=== PATIENT | female | born 1955 | race Caucasian/White ===

== ENCOUNTER 2017-06-09 12:58 | Outpatient (CLI) | payer MEDICARE, MEDICAID ==
[~2017-06-09 12:58] MED LIST: ARIP20TA4 PO; BENZ1TAB7 PO; BUSP10TA10 PO; MIN5C PO; OXYC-511 PO; PROM25TA14 PO; ROFL500T7 PO; SERT50TA PO; SPIIN INH; VAL5T PO
[2017-06-09 13:20] LABS: ABG BASE EXCESS 3.4 mmol/L (-2.0-3.0); ABG HCO3 28.5 mmol/L (22.0-26.0); ABG OXYGEN SATURATION 91.8 % (95-98); ABG PCO2 (T) 44.8 mmHg (32.0-45.0); ABG PH (T) 7.421 (7.350-7.450); ABG PO2 (T) 56.9 mmHg (83-108); ALLEN'S TEST Positive; FCOHb 6.5 % (0.5-1.5); FMetHb 0.3 % (0.3-1.12); FO2Hb 85.6 % (94-100); TOTAL HEMOGLOBIN 14.5 G/dl (12.0-16.0)
== END 2017-06-09 23:59 | disposition home or self-care (01) ==
LOC: RT 12:58
PROVIDERS: ATTEND Physician Assistant
DX: J44.9 Chronic obstructive pulmonary disease, unspecified (principal)
CPT/HCPCS: 36600; 82803; 85018

== ENCOUNTER 2018-01-02 09:13 | Emergency (ER) | payer MEDICARE, MEDICAID ==
[~2018-01-02] VITALS: Ht 162.6 cm; Wt 48.1 kg
[2018-01-02] MEDS ORDERED: haloperidol lactate 5mg/ml inj IM ONE (09:15)
[2018-01-02] MEDS ORDERED: LORazepam 2 mg/ml vial IV ONE (09:15)
[2018-01-02] MEDS ORDERED: normal saline 1000ML IV soln IVB ONE (09:15)
[2018-01-02 09:35] LABS: BASOPHILS % (AUTO) 0.1 % (0-1); EOSINOPHILS # (AUTO) 0.1 X10'3 (0-0.9); HEMATOCRIT 40.6 % (35.0-45.0); HEMOGLOBIN 13.5 g/dl (12.0-16.0); LYMPHOCYTES # (AUTO) 0.9 X10'3 (1.1-4.8); LYMPHOCYTES % (AUTO) 11.6 % (21-51); MEAN CORPUSCULAR HEMOGLOBIN 31.1 PG (27.0-31.0); MEAN CORPUSCULAR HGB CONC 33.1 % (33.0-36.5); MEAN CORPUSCULAR VOLUME 93.8 FL (78-98); MEAN PLATELET VOLUME 9.3 FL (7.4-10.4); MONOCYTES # (AUTO) 0.2 X10'3 (0-0.9); MONOCYTES % (AUTO) 2.9 % (2-12); NEUTROPHILS # (AUTO) 6.9 X10'3 (1.8-7.7); NEUTROPHILS % (AUTO) 84.4 % (42-75); PLATELET COUNT 224 X10'3 (140-440); RED BLOOD COUNT 4.33 X10'6 (4.20-5.60); RED CELL DISTRIBUTION WIDTH 13.9 % (11.5-14.5); WHITE BLOOD COUNT 8.1 X10'3 (4.5-11.0)
[2018-01-02 09:49] LABS: ALANINE AMINOTRANSFERASE 32 U/L (12-78); ALBUMIN 3.8 G/DL (3.4-5.0); ALKALINE PHOSPHATASE 63 IU/L (46-116); ANION GAP 5 (8-16); ASPARTATE AMINO TRANSFERASE 30 U/L (10-37); BILIRUBIN,TOTAL 0.4 MG/DL (0.1-1.0); BLOOD UREA NITROGEN 16 MG/DL (7-18); BUN/CREATININE RATIO 22.2 (6.6-38.0); CALCIUM 9.1 MG/DL (8.5-10.1); CHLORIDE 103 MMOL/L (99-107); CREATININE 0.72 MG/DL (0.40-0.90); GLUCOSE 144 MG/DL (70-104); LIPASE 184 U/L (73-393); POTASSIUM 4.3 MMOL/L (3.5-5.1); SODIUM 141 MMOL/L (135-145); TOTAL PROTEIN 7.6 G/DL (6.4-8.2); eGFR 82 ML/MIN
[2018-01-02] MEDS ORDERED: LORA0.5T PO (09:55)
[2018-01-02] MEDS ORDERED: proCHLORperazine 10 MG/2 ml inj IV ONE (10:00)
[2018-01-02] MEDS ORDERED: diphenhydrAMINE 50 mg/ml inj IV ONE (10:00)
[2018-01-02 10:10] VITALS: BP 142/76
== END 2018-01-02 11:17 | disposition home or self-care (01) ==
LOC: ER 09:14
DX: F12.188 Cannabis abuse with other cannabis-induced disorder (principal); R11.2 Nausea with vomiting, unspecified; E86.0 Dehydration; I10 Essential (primary) hypertension; F44.9 Dissociative and conversion disorder, unspecified; G89.29 Other chronic pain; Z90.49 Acquired absence of other specified parts of digestive tract; Z90.710 Acquired absence of both cervix and uterus; Z98.890 Other specified postprocedural states; Z79.899 Other long term (current) drug therapy
CPT/HCPCS: 36415; 80053; 83690; 85025; 96361; 96372; 96374; 96375; 99284; J0780; J1200; J1630; J2060

== ENCOUNTER 2018-07-10 07:22 | Emergency (ER) | payer MEDICARE, MEDICAID ==
[~2018-07-10] VITALS: Ht 162.6 cm; Wt 48.0 kg
[2018-07-10] MEDS ORDERED: diphenhydrAMINE 50 mg/ml inj IV ONE (07:45)
[2018-07-10] MEDS ORDERED: LORazepam 2 mg/ml vial IV ONE (07:45)
[2018-07-10] MEDS ORDERED: ondansetron/PF 4mg/2ml inj IV ONE (07:45)
[2018-07-10] MEDS ORDERED: metoclopramide 5 mg/ml inj IM ONE (07:45)
[2018-07-10] MEDS ORDERED: normal saline 1000ML IV soln IVB ONE (07:45)
[2018-07-10 08:06] LABS: BASOPHILS # (AUTO) 0.1 X10'3 (0-0.2); BASOPHILS % (AUTO) 0.5 % (0-1); EOSINOPHILS # (AUTO) 0.1 X10'3 (0-0.9); EOSINOPHILS % (AUTO) 0.7 % (0-6); HEMATOCRIT 39.3 % (35.0-45.0); HEMOGLOBIN 13.5 g/dl (12.0-16.0); LYMPHOCYTES # (AUTO) 1.3 X10'3 (1.1-4.8); LYMPHOCYTES % (AUTO) 13.1 % (21-51); MEAN CORPUSCULAR HEMOGLOBIN 32.3 PG (27.0-31.0); MEAN CORPUSCULAR HGB CONC 34.3 g/dL (33.0-36.5); MEAN CORPUSCULAR VOLUME 94.1 FL (78-98); MEAN PLATELET VOLUME 8.6 FL (7.4-10.4); MONOCYTES # (AUTO) 0.3 X10'3 (0-0.9); MONOCYTES % (AUTO) 3.6 % (2-12); NEUTROPHILS # (AUTO) 7.9 X10'3 (1.8-7.7); NEUTROPHILS % (AUTO) 82.1 % (42-75); PLATELET COUNT 236 X10'3 (140-440); RED BLOOD COUNT 4.17 X10'6 (4.20-5.60); RED CELL DISTRIBUTION WIDTH 13.5 % (11.5-14.5); WHITE BLOOD COUNT 9.6 X10'3 (4.5-11.0)
[2018-07-10 08:27] LABS: ALANINE AMINOTRANSFERASE 34 U/L (12-78); ALBUMIN 3.8 G/DL (3.4-5.0); ALBUMIN/GLOBULIN RATIO 1.1 (1.1-1.5); ALKALINE PHOSPHATASE 65 IU/L (46-116); ANION GAP 6 (8-16); ASPARTATE AMINO TRANSFERASE 31 U/L (10-37); BILIRUBIN,TOTAL 0.5 MG/DL (0.1-1.0); BLOOD UREA NITROGEN 11 MG/DL (7-18); BUN/CREATININE RATIO 14.5 (6.6-38.0); CALCIUM 9.8 MG/DL (8.5-10.1); CHLORIDE 102 MMOL/L (99-107); CREATININE 0.76 MG/DL (0.40-0.90); GLUCOSE 147 MG/DL (70-104); LIPASE 133 U/L (73-393); POTASSIUM 4.1 MMOL/L (3.5-5.1); SODIUM 140 MMOL/L (135-145); TOTAL CARBON DIOXIDE 31.8 MMOL/L (24-32); TOTAL PROTEIN 7.2 G/DL (6.4-8.2); eGFR 77 ML/MIN
[2018-07-10] MEDS ORDERED: ONDA8TAB6 PO (08:39)
[2018-07-10 08:56] VITALS: BP 149/78
== END 2018-07-10 08:50 | disposition home or self-care (01) ==
LOC: ER 07:22
DX: F12.20 Cannabis dependence, uncomplicated (principal); I10 Essential (primary) hypertension; J44.9 Chronic obstructive pulmonary disease, unspecified; G89.29 Other chronic pain; M81.0 Age-related osteoporosis without current pathological fracture; Z90.710 Acquired absence of both cervix and uterus; Z56.0 Unemployment, unspecified
CPT/HCPCS: 36415; 80053; 83690; 85025; 93005; 96361; 96372; 96374; 96375; 99284; J1200; J2060; J2405; J2765; J7030

== ENCOUNTER 2019-09-09 11:33 | Emergency (ER) | payer MEDICARE, MEDICAID ==
[~2019-09-09] VITALS: Ht 162.6 cm; Wt 45.5 kg
[~2019-09-09 11:33] MED LIST changes: +ONDA8TAB6 PO
[2019-09-09] MEDS ORDERED: ketamine 50 mg/ml 10ml vial IV ONE (12:10)
--- NOTE | 2019-09-09 12:55 | NUR ---
MD at bedside aware of hypertension after recieving Ketamine during procedure.
[2019-09-09] MEDS ORDERED: diphenhydrAMINE 50 mg/ml inj IV ONE (13:15)
[2019-09-09] MEDS ORDERED: metoclopramide 5 mg/ml inj IV ONE (13:15)
[2019-09-09 14:23] VITALS: BP 135/83
== END 2019-09-09 14:27 | disposition home or self-care (01) ==
LOC: ER 11:33
DX: S52.502A Unspecified fracture of the lower end of left radius, initial encounter for closed fracture (principal); I10 Essential (primary) hypertension; J44.9 Chronic obstructive pulmonary disease, unspecified; M81.0 Age-related osteoporosis without current pathological fracture; F32.9 Major depressive disorder, single episode, unspecified; F12.90 Cannabis use, unspecified, uncomplicated; Z86.19 Personal history of other infectious and parasitic diseases; Z90.49 Acquired absence of other specified parts of digestive tract; Z90.710 Acquired absence of both cervix and uterus; Z98.890 Other specified postprocedural states; Z56.0 Unemployment, unspecified; Z79.899 Other long term (current) drug therapy; W01.0XXA Fall on same level from slipping, tripping and stumbling without subsequent striking against object, initial encounter; Y93.89 Activity, other specified; Y92.89 Other specified places as the place of occurrence of the external cause; Y99.8 Other external cause status
CPT/HCPCS: 25605; 73090; 73100; 96374; 96375; 99152; 99285; J1200; J2765; 94760; 99153

== ENCOUNTER 2019-10-28 03:31 | Inpatient (IN) | payer MEDICARE, MEDICAID ==
[~2019-10-28] VITALS: Ht 162.6 cm; Wt 45.5 kg
[~2019-10-28 03:31] MED LIST changes: +ALBU18HF2 INH; -ARIP20TA4 PO; +ARIP5TAB14 PO; +ASPI-1071 PO; +ATOR20TA66 PO; -BENZ1TAB7 PO; -BUSP10TA10 PO; +COR3.125T PO; +DOXY100C2 PO; -MIN5C PO; +OMEP40CA13 PO; -ONDA8TAB6 PO; +OXYC-150 PO; -OXYC-511 PO; +PRED10TA23 PO; -PROM25TA14 PO; +SERT25TA PO; -SERT50TA PO; -SPIIN INH; +UMEC62.5 INH
[2019-10-28] MEDS ORDERED: methylPREDNISolone sod succ 125mg/2ml vial IV ONE (03:35)
[2019-10-28] MEDS ORDERED: ipratropium/albuterol 3ml nebule NEB ONE (03:35)
[2019-10-28] MEDS ORDERED: normal saline 1000ML IV soln IVB ONE (03:35)
[2019-10-28] MEDS ORDERED: magnesium 2GM in 50ml NS 50 ML IV ONE (03:35)
[2019-10-28 03:59] LABS: BASOPHILS # (AUTO) 0.2 X10'3 (0-0.2); BASOPHILS % (AUTO) 1.2 % (0-1); EOSINOPHILS # (AUTO) 0.1 X10'3 (0-0.9); EOSINOPHILS % (AUTO) 0.6 % (0-6); LYMPHOCYTES # (AUTO) 3.4 X10'3 (1.1-4.8); LYMPHOCYTES % (AUTO) 17.8 % (21-51); MEAN CORPUSCULAR HEMOGLOBIN 31.6 PG (27.0-31.0); MEAN CORPUSCULAR HGB CONC 32.5 g/dL (33.0-36.5); MEAN CORPUSCULAR VOLUME 97.1 FL (78-98); MEAN PLATELET VOLUME 8.5 FL (7.4-10.4); MONOCYTES # (AUTO) 1.7 X10'3 (0-0.9); MONOCYTES % (AUTO) 8.9 % (2-12); NEUTROPHILS # (AUTO) 13.5 X10'3 (1.8-7.7); NEUTROPHILS % (AUTO) 71.5 % (42-75); PLATELET COUNT 403 X10'3 (140-440); RED BLOOD COUNT 4.12 X10'6 (4.20-5.60); RED CELL DISTRIBUTION WIDTH 13.8 % (11.5-14.5); WHITE BLOOD COUNT 18.9 X10'3 (4.5-11.0)
[2019-10-28 04:14] LABS: ALANINE AMINOTRANSFERASE 38 U/L (12-78); ALBUMIN 3.6 G/DL (3.4-5.0); ALKALINE PHOSPHATASE 68 IU/L (46-116); ASPARTATE AMINO TRANSFERASE 36 U/L (10-37); BILIRUBIN,TOTAL 0.3 MG/DL (0.1-1.0); BLOOD UREA NITROGEN 17 MG/DL (7-18); BUN/CREATININE RATIO 24.6 (6.6-38.0); CALCIUM 8.5 MG/DL (8.5-10.1); CHLORIDE 96 MMOL/L (99-107); CREATININE 0.69 MG/DL (0.40-0.90); GLUCOSE 243 MG/DL (70-104); SODIUM 139 MMOL/L (135-145); TOTAL PROTEIN 7.2 G/DL (6.4-8.2); eGFR 86 ML/MIN
[2019-10-28 04:20] LABS: TROPONIN I < 0.04 NG/ML (0.0-0.05)
[2019-10-28] MEDS ORDERED: CefTRIAXone 2gm/D5W 50ml 50 ML IV ONE (04:20)
[2019-10-28 04:24] LABS: POTASSIUM 5.3 MMOL/L (3.5-5.1)
[2019-10-28 04:27] LABS: CLARITY,URINE CLEAR (Clear); COLOR,URINE YELLOW (Yellow); GLUCOSE, URINE 100 mg/dl (Neg); KETONES,URINE NEGATIVE (Neg); LEUKOCYTE ESTERASE ,URINE NEGATIVE (Neg); NITRITES, URINE NEGATIVE (Neg); OCCULT BLOOD,URINE SMALL (Neg); PROTEIN,URINE NEGATIVE (Neg); UROBILINOGEN,URINE 0.2 E.U/dL (0.2-1.0)
[2019-10-28 04:30] LABS: UA COLLECTION TYPE OTHER
[2019-10-28 04:32] LABS: ANION GAP -7 (8-16); TOTAL CARBON DIOXIDE 49.6 MMOL/L (24-32)
[2019-10-28 04:34] LABS: BACTERIA,URINE NONE SEEN /HPF (Neg); WBC,URINE 0-4 /HPF (0-4)
--- NOTE | 2019-10-28 04:34 | NUR ---
bridgett [phone] . Pt gave permission to speak medical updates with him
[2019-10-28 04:35] LABS: FINE GRANULAR CAST 0-3 /LPF (NEGATIVE); SQUAMOUS EPITHELIAL CELL,UR FEW /LPF (FEW)
[2019-10-28 05:21] LABS: ABG BASE EXCESS 17.3 mmol/L (-2.0-2.0); ABG HCO3 47.1 mmol/L (22.0-26.0); ABG OXYGEN SATURATION 91.2 % (94-97); ABG PCO2 (T) 86.1 mmHg (32.0-45.0); ABG PO2 (T) 55.1 mmHg (75.0-100.0); ALLEN'S TEST POSITIVE; FCOHb 2.6 % (0.0-3.9); FMetHb 0.1 % (0.0-1.5); FO2Hb 88.7 % (94-97); PATIENT TEMPERATURE 36.5; RESPIRATORY RATE 14 b/min; TOTAL HEMOGLOBIN 12.3 G/dl (12.0-16.0)
--- NOTE | 2019-10-28 06:22 | NUR ---
PATIENT ASLEP ON HIGH FOWLERS,ON BIPAP FI02 30%,RATE 20.
--- NOTE | 2019-10-28 07:04 | NUR ---
PATIENT ASSISTED TO BSC,RT TO RETURN IN 30 MINUTES TO PERFORM ABG,FAILED FIRSDT ATTEMPT.F102 CHANGED TO 50%.
--- NOTE | 2019-10-28 07:11 | NUR ---
PATIENT SATING 100% ON 50%FI02,ADJUSTED TO 30%,99% SATURATION.
[2019-10-28] MEDS: roflumilast 500mcg tablet PO SCH (08:00)
[2019-10-28] MEDS ORDERED: potassium CL 10mEq/100ml bag 100 ML IV PRN ×2 (08:05)
[2019-10-28] MEDS ORDERED: ondansetron/PF 4mg/2ml inj IV PRN (08:05)
[2019-10-28] MEDS ORDERED: mag hydrox/Alum hydrox/simeth 30ml oral suspension PO PRN (08:05)
[2019-10-28] MEDS ORDERED: magnesium 2GM in 50ml NS 50 ML IV PRN (08:05)
[2019-10-28] MEDS ORDERED: potassium Cl 20 mEq SR tablet PO PRN ×2 (08:05)
[2019-10-28] MEDS ORDERED: magnesium 4gm in 100ml NS 100 ML IV PRN (08:05)
[2019-10-28] MEDS ORDERED: magnesium hydroxide 30ml (MOM) UD suspension PO PRN (08:05)
[2019-10-28] MEDS ORDERED: acetaminophen 325mg tablet PO PRN ×2 (08:05)
[2019-10-28] MEDS: enoxaparin 40mg/0.4ml syringe SQ SCH (08:20)
--- NOTE | 2019-10-28 08:57 | NUR ---
Patient in room ED 5. I have received report from Shwetha CRAVEN and had the opportunity to ask questions and assume patient care. Awaiting patient's arrival to the unit.
[2019-10-28] MEDS ORDERED: ipratropium/albuterol 3ml nebule ONE (09:00)
[2019-10-28] MEDS: ipratropium/albuterol 3ml nebule NEB SCH ×4 (09:04→23:48)
[2019-10-28 09:05] LABS: ABG BASE EXCESS 9.9 mmol/L (-2.0-2.0); ABG HCO3 37.1 mmol/L (22.0-26.0); ABG OXYGEN SATURATION 97.8 % (94-97); ABG PCO2 (T) 61.8 mmHg (32.0-45.0); ABG PO2 (T) 102.8 mmHg (75.0-100.0); ALLEN'S TEST POSITIVE; FMetHb 0.1 % (0.0-1.5); FO2Hb 95.7 % (94-97); PATIENT TEMPERATURE 36.5; RESPIRATORY RATE 20 b/min; TIDAL VOLUME 593 mL; TOTAL HEMOGLOBIN 12.6 G/dl (12.0-16.0)
--- NOTE | 2019-10-28 09:15 | NUR ---
Patient arrived to the unit accompanied by ED personnel. Patient currently on 4L oxygen satting 94-95%, cannula placed by RT. Bipap in room, ABG results pending. 2 RN skin check complete, vital signs obtained, bedside monitoring initiated, patient belongings placed at the bedside, and patient oriented to room and call light. Patient voided in commode. Will continue to monitor.
[2019-10-28] MEDS: oxyCODONE/APAP 10/325mg tablet PO PRN (09:45)
[2019-10-28] MEDS: atorvastatin 20mg tablet PO SCH (10:36)
[2019-10-28] MEDS: aripiprazole 5mg tablet PO SCH (10:36)
[2019-10-28] MEDS: montelukast 10mg tablet PO SCH (10:36)
[2019-10-28] MEDS: sertraline 50mg tablet PO SCH (10:37)
[2019-10-28] MEDS: aspirin 81mg tablet.DR PO SCH (10:37)
[2019-10-28] MEDS: carVEDilol 3.125mg tablet PO SCH ×2 (10:37→20:39)
[2019-10-28] MEDS: diazepam 5mg tablet PO PRN ×2 (10:40→23:27)
[2019-10-28 11:00] VITALS: BP 106/63
[2019-10-28 15:00] VITALS: BP 110/58
[2019-10-28] MEDS: methylPREDNISolone sod succ 125mg/2ml vial IV SCH ×2 (16:27→23:28)
[2019-10-28] MEDS: piperacillin/tazo 4.5gm/100ml 100 ML IV SCH ×2 (16:38→23:26)
[2019-10-28 18:00] VITALS: BP 124/72
--- NOTE | 2019-10-28 18:10 | NUR ---
Problems reprioritized. Patient report given, questions answered & plan of care reviewed with Gloria CRAVEN.
--- NOTE | 2019-10-28 18:11 | NUR ---
Patient in room PCU 3027. I have received report from Dinorah CRAVEN and had the opportunity to ask questions and assume patient care.
[2019-10-28] MEDS: K and/or MAG REPLACEMENT MC SCH (20:00)
[2019-10-28] MEDS ORDERED: carVEDilol 3.125mg tablet PO SCH (20:00)
[2019-10-28] MEDS: lactobacillus rhamnosus 10,000 MMU CELLS/CAPSULE PO SCH (20:40)
[2019-10-28 22:00] VITALS: BP 136/89
[2019-10-29 02:00] VITALS: BP 139/71
[2019-10-29] MEDS: ipratropium/albuterol 3ml nebule NEB SCH ×7 (02:00→23:05)
[2019-10-29 05:40] LABS: BASOPHILS # (AUTO) 0.1 X10'3 (0-0.2); BASOPHILS % (AUTO) 0.6 % (0-1); EOSINOPHILS % (AUTO) 0 % (0-6); HEMATOCRIT 35.1 % (35.0-45.0); HEMOGLOBIN 11.7 g/dl (12.0-16.0); LYMPHOCYTES # (AUTO) 0.7 X10'3 (1.1-4.8); MEAN CORPUSCULAR HEMOGLOBIN 31.9 PG (27.0-31.0); MEAN CORPUSCULAR HGB CONC 33.2 g/dL (33.0-36.5); MEAN PLATELET VOLUME 8.3 FL (7.4-10.4); MONOCYTES # (AUTO) 0.3 X10'3 (0-0.9); MONOCYTES % (AUTO) 1.9 % (2-12); NEUTROPHILS # (AUTO) 12.6 X10'3 (1.8-7.7); NEUTROPHILS % (AUTO) 92.5 % (42-75); PLATELET COUNT 283 X10'3 (140-440); RED BLOOD COUNT 3.65 X10'6 (4.20-5.60); RED CELL DISTRIBUTION WIDTH 13.5 % (11.5-14.5); WHITE BLOOD COUNT 13.6 X10'3 (4.5-11.0)
[2019-10-29 06:00] VITALS: BP 132/66
[2019-10-29 06:12] LABS: ALANINE AMINOTRANSFERASE 29 U/L (12-78); ALBUMIN 3.2 G/DL (3.4-5.0); ALKALINE PHOSPHATASE 53 IU/L (46-116); ANION GAP 2 (8-16); ASPARTATE AMINO TRANSFERASE 20 U/L (10-37); BILIRUBIN,TOTAL 0.7 MG/DL (0.1-1.0); BLOOD UREA NITROGEN 16 MG/DL (7-18); BUN/CREATININE RATIO 23.5 (6.6-38.0); CALCIUM 8.9 MG/DL (8.5-10.1); CHLORIDE 97 MMOL/L (99-107); CREATININE 0.68 MG/DL (0.40-0.90); GLUCOSE 146 MG/DL (70-104); MAGNESIUM 1.9 MG/DL (1.5-2.4); POTASSIUM 4.4 MMOL/L (3.5-5.1); SODIUM 137 MMOL/L (135-145); TOTAL CARBON DIOXIDE 38.4 MMOL/L (24-32); TOTAL PROTEIN 6.3 G/DL (6.4-8.2); eGFR 87 ML/MIN
--- NOTE | 2019-10-29 06:42 | NUR ---
Patient in room PCU 3027. I have received report from Gloria CRAVEN and had the opportunity to ask questions and assume patient care.
--- NOTE | 2019-10-29 06:44 | NUR ---
Problems reprioritized. Patient report given, questions answered & plan of care reviewed with Delano CRAVEN.
[2019-10-29] MEDS ORDERED: atorvastatin 20mg tablet PO SCH (08:00)
[2019-10-29] MEDS ORDERED: roflumilast 500mcg tablet PO SCH (08:00)
[2019-10-29] MEDS ORDERED: sertraline 50mg tablet PO SCH (08:00)
[2019-10-29] MEDS ORDERED: aripiprazole 5mg tablet PO SCH (08:00)
[2019-10-29] MEDS: carVEDilol 3.125mg tablet PO SCH ×2 (08:00→20:04)
[2019-10-29] MEDS: K and/or MAG REPLACEMENT MC SCH ×2 (08:00→19:56)
[2019-10-29] MEDS ORDERED: aspirin 81mg tablet.DR PO SCH (08:00)
[2019-10-29] MEDS: methylPREDNISolone sod succ 125mg/2ml vial IV SCH ×2 (08:20→16:05)
[2019-10-29] MEDS: piperacillin/tazo 4.5gm/100ml 100 ML IV SCH ×2 (08:20→16:08)
[2019-10-29] MEDS: roflumilast 500mcg tablet PO SCH (08:21)
[2019-10-29] MEDS: enoxaparin 40mg/0.4ml syringe SQ SCH (08:21)
[2019-10-29] MEDS: aspirin 81mg tablet.DR PO SCH (08:22)
[2019-10-29] MEDS: aripiprazole 5mg tablet PO SCH (08:22)
[2019-10-29] MEDS: lactobacillus rhamnosus 10,000 MMU CELLS/CAPSULE PO SCH ×2 (08:22→20:04)
[2019-10-29] MEDS: pantoprazole 40mg Tablet.DR PO SCH (08:22)
[2019-10-29] MEDS: montelukast 10mg tablet PO SCH (08:22)
[2019-10-29] MEDS: oxyCODONE/APAP 10/325mg tablet PO PRN ×2 (08:29→16:37)
[2019-10-29] MEDS: atorvastatin 20mg tablet PO SCH (08:29)
[2019-10-29] MEDS: sertraline 50mg tablet PO SCH (08:29)
[2019-10-29 09:01] LABS: ABG BASE EXCESS 10.1 mmol/L (-2.0-2.0); ABG HCO3 36.3 mmol/L (22.0-26.0); ABG PCO2 (T) 55.9 mmHg (32.0-45.0); ABG PO2 (T) 67.9 mmHg (75.0-100.0); FCOHb 0.6 % (0.0-3.9); FLOW 2 L/min; FMetHb 0.1 % (0.0-1.5); FO2Hb 93.3 % (94-97); TOTAL HEMOGLOBIN 12.6 G/dl (12.0-16.0)
[2019-10-29 11:00] VITALS: BP 126/75
[2019-10-29] MEDS: diazepam 5mg tablet PO PRN (12:31)
--- NOTE | 2019-10-29 15:02 | NUR ---
Pt with a low BMI however current wt isn't scaled. Pt seen at bedside states she believes she currently weighs 100 lbs with UBW 115 lbs at the highest, however then reports her weight has been stable around 100-105 lbs over the last 8 months. Pt reports low PO intake [employer] d/t being too busy helping other people, then later reports she has a nephew that helps her with meals and that she usually will eat throughout the day. Pt currently endorsing a good appetite which is evident with average 50-75% PO intake, up to 100% PO intake at lunch today. Pt reports low PO intake at dinner last night is r/t not liking fish. Pt with no documented significant decrease in muscle strength or edema. Likely pt with a chronically low BMI. Pt denies food allergies and reports some difficulty chewing d/t missing some teeth. Pt agrees to gravy on meat TID and requests no fish, Vietnamese yogurt TID, and sub (chocolate) almond milk in place of regular milk. All food preferences were d/w dietary. Pt provided with ONS coupons and RD contact information. Will continue to follow. Addendum: 10/29/19 at [address] Amended: Links added.
[2019-10-29 18:00] VITALS: BP 120/65
--- NOTE | 2019-10-29 18:09 | NUR ---
Problems reprioritized. Patient report given, questions answered & plan of care reviewed with Ayanna CRAVEN.
[2019-10-29 22:00] VITALS: BP 118/64
[2019-10-30] MEDS: piperacillin/tazo 4.5gm/100ml 100 ML IV SCH ×2 (00:04→08:11)
[2019-10-30] MEDS: methylPREDNISolone sod succ 125mg/2ml vial IV SCH ×2 (00:04→08:10)
[2019-10-30 02:00] VITALS: BP 128/67
[2019-10-30] MEDS: ipratropium/albuterol 3ml nebule NEB SCH ×3 (02:49→11:02)
[2019-10-30 05:58] LABS: BASOPHILS % (AUTO) 0.1 % (0-1); EOSINOPHILS % (AUTO) 0 % (0-6); HEMATOCRIT 34.2 % (35.0-45.0); HEMOGLOBIN 11.5 g/dl (12.0-16.0); LYMPHOCYTES # (AUTO) 0.6 X10'3 (1.1-4.8); MEAN CORPUSCULAR HEMOGLOBIN 32.3 PG (27.0-31.0); MEAN CORPUSCULAR HGB CONC 33.5 g/dL (33.0-36.5); MEAN CORPUSCULAR VOLUME 96.3 FL (78-98); MEAN PLATELET VOLUME 8.2 FL (7.4-10.4); MONOCYTES # (AUTO) 0.4 X10'3 (0-0.9); MONOCYTES % (AUTO) 2.8 % (2-12); NEUTROPHILS # (AUTO) 13.8 X10'3 (1.8-7.7); NEUTROPHILS % (AUTO) 93.1 % (42-75); PLATELET COUNT 244 X10'3 (140-440); RED BLOOD COUNT 3.55 X10'6 (4.20-5.60); RED CELL DISTRIBUTION WIDTH 13.3 % (11.5-14.5); WHITE BLOOD COUNT 14.8 X10'3 (4.5-11.0)
--- NOTE | 2019-10-30 06:00 | NUR ---
Patient in room PCU 3027. I have received report from Anneliese CRAVEN and had the opportunity to ask questions and assume patient care.
[2019-10-30 06:17] LABS: ALANINE AMINOTRANSFERASE 27 U/L (12-78); ALKALINE PHOSPHATASE 46 IU/L (46-116); ANION GAP 3 (8-16); ASPARTATE AMINO TRANSFERASE 18 U/L (10-37); BILIRUBIN,TOTAL 0.6 MG/DL (0.1-1.0); BLOOD UREA NITROGEN 12 MG/DL (7-18); BUN/CREATININE RATIO 16.9 (6.6-38.0); CALCIUM 8.5 MG/DL (8.5-10.1); CHLORIDE 99 MMOL/L (99-107); CREATININE 0.71 MG/DL (0.40-0.90); GLUCOSE 132 MG/DL (70-104); MAGNESIUM 1.9 MG/DL (1.5-2.4); POTASSIUM 3.9 MMOL/L (3.5-5.1); SODIUM 139 MMOL/L (135-145); TOTAL CARBON DIOXIDE 36.7 MMOL/L (24-32); TOTAL PROTEIN 6.1 G/DL (6.4-8.2); eGFR 83 ML/MIN
--- NOTE | 2019-10-30 06:19 | NUR ---
Problems reprioritized. Patient report given, questions answered & plan of care reviewed with HERBER Dean.
[2019-10-30 07:00] VITALS: BP 148/81
[2019-10-30] MEDS: K and/or MAG REPLACEMENT MC SCH (08:00)
[2019-10-30] MEDS: oxyCODONE/APAP 10/325mg tablet PO PRN (08:09)
[2019-10-30] MEDS: carVEDilol 3.125mg tablet PO SCH (08:10)
[2019-10-30] MEDS: aripiprazole 5mg tablet PO SCH (08:10)
[2019-10-30] MEDS: pantoprazole 40mg Tablet.DR PO SCH (08:10)
[2019-10-30] MEDS: lactobacillus rhamnosus 10,000 MMU CELLS/CAPSULE PO SCH (08:10)
[2019-10-30] MEDS: roflumilast 500mcg tablet PO SCH (08:11)
[2019-10-30] MEDS: montelukast 10mg tablet PO SCH (08:12)
[2019-10-30] MEDS: sertraline 50mg tablet PO SCH (08:12)
[2019-10-30] MEDS: atorvastatin 20mg tablet PO SCH (08:12)
[2019-10-30] MEDS: aspirin 81mg tablet.DR PO SCH (08:12)
[2019-10-30] MEDS: enoxaparin 40mg/0.4ml syringe SQ SCH (08:13)
--- NOTE | 2019-10-30 08:45 | NUR ---
[address] [facility]. Dr. Bernard ordered STAT ABG for this patient THanks. [id number]
[2019-10-30 10:11] LABS: ABG BASE EXCESS 5.5 mmol/L (-2.0-2.0); ABG HCO3 30.5 mmol/L (22.0-26.0); ABG OXYGEN SATURATION 96.9 % (94-97); ABG PO2 (T) 81.5 mmHg (75.0-100.0); ALLEN'S TEST POSITIVE; FCOHb 1.1 % (0.0-3.9); FLOW 2 L/min; FMetHb 0.1 % (0.0-1.5); FO2Hb 95.7 % (94-97); TOTAL HEMOGLOBIN 13.4 G/dl (12.0-16.0)
--- NOTE | 2019-10-30 10:33 | NUR ---
ambulated 600 feet with no assistive devices. no complications
[2019-10-30] MEDS ORDERED: PRED20TA PO (10:52)
[2019-10-30] MEDS ORDERED: MONT10TA26 PO (10:52)
[2019-10-30] MEDS ORDERED: IPRA3AMP9 NEB (10:52)
[2019-10-30] MEDS ORDERED: AMOX-580 PO (10:52)
[2019-10-30 11:00] VITALS: BP 140/77
--- NOTE | 2019-10-30 12:55 | NUR ---
PAtient was d/c to home. Her sister picked her up in a private vehicle. PIV was removed with cannula intact. RX were e scripted to [facility] in [place]. D/c instructions were reviewed with patient and she verbalized understanding. PAtient was alert, oriented, and appropriate at time of d/c.
--- NOTE | 2019-10-30 13:51 | NUR ---
Patient called RX were sent to wrong pharmacy. RXs called in to [facility] in [place].
--- NOTE | 2019-10-31 16:06 | NUR ---
Case management DC follow up: LM/VM re post status follow up, questions, concerns
== END 2019-10-30 12:53 | disposition home health service (06) | DRG 189 ==
LOC: ER 03:31 → ED HOLD 08:05 → PCU 3S 09:27
PROVIDERS: ADMIT Family Medicine; ATTEND Family Medicine
PROC: 5A09357 Assistance with Respiratory Ventilation, Less than 24 Consecutive Hours, Continuous Positive Airway Pressure (ICD-10-PCS; principal; 2019-10-28)
PROC: 5A09357 Assistance with Respiratory Ventilation, Less than 24 Consecutive Hours, Continuous Positive Airway Pressure (ICD-10-PCS; 2019-10-29)
PROC: 5A09357 Assistance with Respiratory Ventilation, Less than 24 Consecutive Hours, Continuous Positive Airway Pressure (ICD-10-PCS; 2019-10-30)
DX: J96.21 Acute and chronic respiratory failure with hypoxia (principal); J69.0 Pneumonitis due to inhalation of food and vomit; I21.4 Non-ST elevation (NSTEMI) myocardial infarction; J44.1 Chronic obstructive pulmonary disease with (acute) exacerbation; J96.22 Acute and chronic respiratory failure with hypercapnia; F12.90 Cannabis use, unspecified, uncomplicated; G89.4 Chronic pain syndrome; I10 Essential (primary) hypertension; D72.823 Leukemoid reaction; B19.20 Unspecified viral hepatitis C without hepatic coma; E87.5 Hyperkalemia; F32.9 Major depressive disorder, single episode, unspecified; M81.0 Age-related osteoporosis without current pathological fracture; Z79.82 Long term (current) use of aspirin; Z90.49 Acquired absence of other specified parts of digestive tract; Z90.710 Acquired absence of both cervix and uterus; Z99.81 Dependence on supplemental oxygen; Z79.899 Other long term (current) drug therapy
CPT/HCPCS: 36415; 36600; 71045; 80053; 81001; 82803; 83605; 83735; 83880; 84484; 85018; 85025; 85610; 87040; 93005; 94640; 94660; 94760; 97116; 97162; 97530; 99291; G0378; J0696; J1650; J2543; J2930; J3475; J7030

== ENCOUNTER 2020-05-28 16:01 | Emergency (ER) | payer MEDICARE, MEDICAID ==
[~2020-05-28] VITALS: Ht 160 cm; Wt 49.1 kg
[~2020-05-28 16:01] MED LIST changes: -ALBU18HF2 INH; +ALBU90AE2 IH; +ALEN70TA37 PO; +AMLO5TAB16 PO; -ASPI-1071 PO; +ASPI-500 PO; +CARV3.122 PO; -COR3.125T PO; +DIAZ10TA5 PO; -DOXY100C2 PO; +GABA300C PO; +MONT10TA32 PO; -OXYC-150 PO; +OXYC1TAB17 PO; -PRED10TA23 PO; +PRED20TA PO; -VAL5T PO
[2020-05-28] MEDS ORDERED: ipratropium/albuterol 3ml nebule NEB ONE (16:05)
[2020-05-28] MEDS ORDERED: diazepam 5mg tablet PO ONE (16:05)
[2020-05-28] MEDS: predniSONE 20 mg tablet PO ONE ×2 (16:21→16:22)
[2020-05-28 17:20] VITALS: BP 123/75
== END 2020-05-28 17:30 | disposition home or self-care (01) ==
LOC: ER 16:01
DX: F41.9 Anxiety disorder, unspecified (principal); J44.9 Chronic obstructive pulmonary disease, unspecified; R06.02 Shortness of breath; I10 Essential (primary) hypertension; G89.29 Other chronic pain; F32.9 Major depressive disorder, single episode, unspecified; F12.90 Cannabis use, unspecified, uncomplicated; Z86.19 Personal history of other infectious and parasitic diseases; Z90.89 Acquired absence of other organs; Z90.710 Acquired absence of both cervix and uterus; Z98.890 Other specified postprocedural states; Z56.0 Unemployment, unspecified; Z79.82 Long term (current) use of aspirin; Z79.899 Other long term (current) drug therapy
CPT/HCPCS: 71045; 93005; 94640; 94760; 99284; J7512

== ENCOUNTER 2020-06-09 19:24 | Emergency (ER) | payer MEDICARE, MEDICAID ==
[~2020-06-09] VITALS: Ht 162.6 cm; Wt 52.0 kg
[~2020-06-09 19:24] MED LIST changes: -DIAZ10TA5 PO; +DIAZ5TAB4 PO; -OXYC1TAB17 PO; -PRED20TA PO
--- NOTE | 2020-06-09 20:30 | NUR ---
[facility] WILL BE TRANSPORTATION, PHONE # [phone]
--- NOTE | 2020-06-09 20:43 | NUR ---
FRIEND LAUREN AT BEDSIDE, PATIENT IS CALM COOL AND COLLECTED AT THIS TIME AND IS NOT SCREAMING EARLIER. JEREMÍAS STATED THAT " I WAS FAKING IT. I FIGURED IT ALL OUT" RR CRUZ AND UNLABORED, ON 2L NC SHE WEARS AT HOME AND SP02 95%
--- NOTE | 2020-06-09 20:50 | NUR ---
JEREMÍAS STATES "I DONT KNOW WHY i DO THIS" "i AM OK TO GO HOME" DISCUSSED MAKING AN APPOINTMENT WITH HER COUNSELOR AND MAKE AN APPOINTMENT WITH HER PMD TO ASSESS HER MEDICATIONS.
--- NOTE | 2020-06-09 21:15 | NUR ---
PATIENT'S FRIEND LAUREN WENT TO GET THE PATIENT'S OXYGEN FOR HER TRANSPORT HOME. LAUREN WILL RETURN TO TAKE JEFFERSON HOME. JEREMÍAS REMAINS CALM AND COLLECTED AND STATED OUT LOUD "I DONT KNOW WHY I DO THIS" PATIENT ENCOURAGED TO RETURN TO COUNSELING AND HAVE A [facility] REVIEW OF HER MEDICATIONS. JEREMÍAS REMAINS ON HER HOME DOSE OF 2 L NC WITH SPO2 AT 94%
[2020-06-09 21:22] VITALS: BP 140/65
== END 2020-06-09 21:52 | disposition home or self-care (01) ==
LOC: ER 19:25
DX: F23 Brief psychotic disorder (principal); I10 Essential (primary) hypertension; J44.9 Chronic obstructive pulmonary disease, unspecified; G89.29 Other chronic pain; F31.9 Bipolar disorder, unspecified; F12.90 Cannabis use, unspecified, uncomplicated; Z86.19 Personal history of other infectious and parasitic diseases; Z90.89 Acquired absence of other organs; Z90.710 Acquired absence of both cervix and uterus; Z98.890 Other specified postprocedural states; Z56.0 Unemployment, unspecified; Z79.82 Long term (current) use of aspirin; Z79.899 Other long term (current) drug therapy
CPT/HCPCS: 93005; 99284